=== PATIENT | female | born 1965 | race Caucasian/White ===

== ENCOUNTER 2024-12-22 18:40 | Emergency (ER) | payer OTHER ==
[~2024-12-22] VITALS: Ht 167.6 cm; Wt 68.0 kg
[2024-12-22 20:50] VITALS: BP 134/88
[2024-12-22] MEDS ORDERED: MELOXICAM15 MG PO ×2 (20:51→20:52)
[2024-12-22] MEDS ORDERED: CYCLOBENZAPRINE10 MG PO ×2 (20:51→20:52)
== END 2024-12-22 20:50 | disposition other institution, planned readmission (95) ==
LOC: ED 18:40
DX: S82.61XA Displaced fracture of lateral malleolus of right fibula, initial encounter for closed fracture (principal); W51.XXXA Accidental striking against or bumped into by another person, initial encounter; Y93.68 Activity, volleyball (beach) (court); Z88.5 Allergy status to narcotic agent
CPT/HCPCS: 73630